=== PATIENT | male | born 1995 | race African-American/Black ===

== ENCOUNTER 2018-07-17 11:05 | Emergency (ER) | payer BC, OTHER ==
[2018-07-17] MEDS ORDERED: ONDANSETRON 4 MG/2 ML VIAL ONE (11:46)
[2018-07-17] MEDS ORDERED: NA CHLORIDE 0.9% 1,000 ML ONE (11:47)
[2018-07-17 11:59] LABS: Absolute Lymphocytes (CBC) 1.3 K/uL (0.7-4.9); Absolute Monocytes 0.4 K/uL (0.1-1.3); Absolute Neutrophil 6.9 K/uL (1.8-8.0); Basophils % 0.3 % (0-1.3); Eosinophils % 0.2 % (0-4.4); Hematocrit 49.5 % (39.6-49.0); Lymphocytes % 15.3 % (15.3-44.8); MPV 10.2 fL (7.6-11.3); Monocytes % 4.8 % (3.3-12.3); RBC Red Blood Cell Count 5.27 M/uL (4.33-5.43)
[2018-07-17 12:19] LABS: Albumin 4.2 g/dL (3.4-5.0); Bilirubin Direct 0.2 mg/dL (0-0.2); Bilirubin Total 0.5 mg/dL (0.2-1.0); Protein, Total 8.4 g/dL (6.4-8.2)
--- NOTE | 2018-07-17 13:13 | EDPHYS ---
Physician Documentation [facility] Name: Juan Carlos Levi Age: 22 yrs Sex: Male : 1995 Arrival Date: 07/17/2018 Time: 11:07 Bed 19 Private MD: ED Physician Asif Don HPI: 07/17 11:55 This 22 yrs old Black Male presents to ER via Ambulatory with complaints of Flu jmm Symptoms. 11:55 The patient presents with abdominal pain. Onset: The symptoms/episode began/occurred jmm gradually. The symptoms do not radiate. Associated signs and symptoms: Pertinent positives: nausea and vomiting. The symptoms are described as achy. This is a 22 year old male with no chronic medical conditions that presents to the ED with generalized abdominal pain beginning this morning around 0400. Patient states having 4 episodes of vomiting. Denies diarrhea. Mother had viral illness 1 week prior. . Historical: - Allergies: 11:18 No Known Allergies; tw2 - Home Meds: 11:18 None [Active]; tw2 - PMHx: 11:18 None; tw2 - PSHx: 11:18 None; tw2 - Immunization history:: Adult Immunizations up to date. - Social history:: Smoking status: Patient/guardian denies using tobacco. - Ebola Screening: : Patient denies travel to an Ebola-affected area in the 21 days before illness onset. ROS: 11:55 Constitutional: Negative for fever, chills, and weight loss, Cardiovascular: Negative jmm for chest pain, palpitations, and edema, Respiratory: Negative for shortness of breath, cough, wheezing, and pleuritic chest pain. 11:55 MS/Extremity: Negative for injury and deformity, Skin: Negative for injury, rash, and discoloration, Neuro: Negative for headache, weakness, numbness, tingling, and seizure. 11:55 Abdomen/GI: Positive for abdominal pain, nausea, vomiting. 11:55 All other systems are negative. Exam: 11:55 Head/Face: atraumatic. Eyes: EOMI, no conjunctival erythema appreciated ENT: Moist jmm Mucus Membranes Neck: Trachea midline, Supple Chest/axilla: Normal chest wall appearance and motion. Cardiovascular: Regular rate and rhythm. No edema appreciated Respiratory: Normal respirations, no respiratory distress appreciated 11:55 Back: Normal ROM Skin: General appearance color normal MS/ Extremity: Moves all extremities, no obvious deformities appreciated, no edema noted to the lower extremities Neuro: Awake and alert, normal gait Psych: Behavior is normal, Mood is normal, Patient is cooperative and pleasant 11:55 Constitutional: The patient appears in no acute distress, alert, awake. 11:55 Abdomen/GI: Inspection: abdomen appears normal, Bowel sounds: normal, Palpation: abdomen is soft and non-tender, in all quadrants. Vital Signs: 11:18 BP 141 / 96; Pulse 70; Resp 17; Temp 97.7(TE); Pulse Ox 99% on R/A; Pain 6/10; tw2 13:32 BP 126 / 92; Pulse 84; Resp 16; Temp 98.4; Pulse Ox 98% on R/A; la1 MDM: 11:27 Patient medically screened. [facility] 13:11 Data reviewed: vital signs, nurses notes. Counseling: I had a detailed discussion with rose the patient and/or guardian regarding: the historical points, exam findings, and any diagnostic results supporting the discharge/admit diagnosis, lab results, the need for outpatient follow up, to return to the emergency department if symptoms worsen or persist or if there are any questions or concerns that arise at home. ED course: No leukocytosis, abdomen soft non tender to palpation. I do not suspect an acute intraabdominal process. Patient given early appendicitis return precautions. Patient tolerates PO in the ED.. 12 11:36 Order name: Basic Metabolic Panel; Complete Time: 12:32 [facility] 07/17 11:36 Order name: CBC with Diff; Complete Time: 12:32 [facility] 07/17 11:36 Order name: Creatinine for Radiology; Complete Time: 12:32 [facility] 07/17 11:36 Order name: Hepatic Function; Complete Time: 12:32 [facility] 07/17 11:36 Order name: Lipase; Complete Time: 12:32 [facility] 07/17 11:36 Order name: IV Saline Lock; Complete Time: 11:47 [facility] 07/17 11:36 Order name: Labs collected and sent; Complete Time: 11:47 [facility] Administered Medications: 11:47 Drug: NS 0.9% 1000 ml Route: IV; Rate: 1 bolus; Site: right antecubital; la1 13:10 Follow up: IV Status: Completed infusion la1 11:47 Drug: Zofran 4 mg Route: IVP; Site: right antecubital; la1 13:10 Follow up: Response: No adverse reaction la1 Disposition: 14:00 Co-signature as Attending Physician, Asif Don MD. rn Disposition: 07/17/18 13:12 Discharged to Home. Impression: Vomiting, unspecified. - Condition is Stable. - Discharge Instructions: Nausea and Vomiting, Adult. - Prescriptions for Zofran ODT 4 mg Oral tablet,disintegrating - place 1 tablet by TRANSLINGUAL route every 4-6 hours; 20 tablet. Bentyl 20 mg Oral Tablet - take 2 tablet by ORAL route every 6 hours As needed; 40 tablet. - Medication Reconciliation Form, Thank You Letter, Antibiotic Education, Prescription Opioid Use form. - Follow up: Private Physician; When: 2 - 3 days; Reason: Recheck today's complaints, Continuance of care, Re-evaluation by your physician. Signatures: Dispatcher [employer] EDMS Jan Jolly PA PA jmm Nieto, Roman, MD MD rn Attema, Lee, RN RN la1 Patricia Gutiérrez RN RN tw2 Corrections: (The following items were deleted from the chart) 13:32 13:12 07/17/2018 13:12 Discharged to Home. Impression: Vomiting, unspecified. Condition la1 is Stable. Forms are Medication Reconciliation Form, Thank You Letter, Antibiotic Education, Prescription Opioid Use. Follow up: Private Physician; When: 2 - 3 days; Reason: Recheck today's complaints, Continuance of care, Re-evaluation by your physician. [facility]
--- NOTE | 2018-07-17 13:13 | ER ---
Nurse's Notes [facility] Name: Juan Carlos Levi Age: 22 yrs Sex: Male : 1995 Arrival Date: 07/17/2018 Time: 11:07 Bed 19 Private MD: Diagnosis: Vomiting, unspecified Presentation: 07/17 11:17 Presenting complaint: Patient states: my stomach has been hurting and i have a tw2 headache, i vomited 3 or 4 times, i feel nauseous started yesterday. Transition of care: patient was not received from another setting of care. Onset of symptoms was July 17, 2018. Risk Assessment: Do you want to hurt yourself or someone else? Patient reports no desire to harm self or others. Initial Sepsis Screen: Does the patient meet any 2 criteria? No. Patient's initial sepsis screen is negative. Does the patient have a suspected source of infection? No. Patient's initial sepsis screen is negative. Care prior to arrival: None. 11:17 Method Of Arrival: Ambulatory tw2 11:17 Acuity: [place] 3 tw2 Triage Assessment: 11:18 General: Appears in no apparent distress. Behavior is calm, cooperative, appropriate tw2 for age. Pain: Complains of pain in abdomen. Historical: - Allergies: 11:18 No Known Allergies; tw2 - Home Meds: 11:18 None [Active]; tw2 - PMHx: 11:18 None; tw2 - PSHx: 11:18 None; tw2 - Immunization history:: Adult Immunizations up to date. - Social history:: Smoking status: Patient/guardian denies using tobacco. - Ebola Screening: : Patient denies travel to an Ebola-affected area in the 21 days before illness onset. Screenin:48 Abuse screen: Denies threats or abuse. Nutritional screening: No deficits noted. la1 Tuberculosis screening: No symptoms or risk factors identified. Fall Risk None identified. Assessment: 11:47 General: Appears in no apparent distress. Behavior is calm, cooperative. Pain: Denies la1 pain. Neuro: Level of Consciousness is awake, alert, obeys commands, Oriented to person, place, time, situation. Cardiovascular: Capillary refill < 3 seconds Patient's skin is warm and dry. Respiratory: Airway is patent Respiratory effort is even, unlabored, Respiratory pattern is regular, symmetrical, Breath sounds are clear bilaterally. GI: Bowel sounds present X 4 quads. Abd is soft and non tender X 4 quads. Reports nausea, vomiting, Patient currently denies bloody stool, constipation. Vital Signs: 11:18 BP 141 / 96; Pulse 70; Resp 17; Temp 97.7(TE); Pulse Ox 99% on R/A; Pain 6/10; tw2 13:32 BP 126 / 92; Pulse 84; Resp 16; Temp 98.4; Pulse Ox 98% on R/A; la1 ED Course: 11:07 Patient arrived in ED. sb2 11:18 Triage completed. tw2 11:18 Arm band placed on. tw2 11:21 Jan Jolly PA is PHCP. dior 11:21 Asif Don MD is Attending Physician. [facility] 11:36 Paul Martin, RN is Primary Nurse. la1 11:47 No provider procedures requiring assistance completed. Inserted saline lock: 20 gauge la1 in right antecubital area, using aseptic technique. Blood collected. 11:48 Call light in reach. la1 13:32 IV discontinued, intact, bleeding controlled, No redness/swelling at site. Pressure la1 dressing applied. Administered Medications: 11:47 Drug: NS 0.9% 1000 ml Route: IV; Rate: 1 bolus; Site: right antecubital; la1 13:10 Follow up: IV Status: Completed infusion la1 11:47 Drug: Zofran 4 mg Route: IVP; Site: right antecubital; la1 13:10 Follow up: Response: No adverse reaction la1 Outcome: 13:12 Discharge ordered by . [facility] 13:32 Discharged to home ambulatory. la1 13:32 Condition: stable 13:32 Discharge instructions given to patient, Instructed on discharge instructions, follow up and referral plans. medication usage, Demonstrated understanding of instructions, follow-up care, medications, Prescriptions given X 2. 13:32 Patient left the ED. la1 Signatures: Jan Jolly PA PA jmm Attema, Lee, RN RN la1 Patricia Gutiérrez RN RN tw2 Donna Lezama sb2
== END 2018-07-17 13:32 | disposition home or self-care (01) ==
LOC: ER 11:05
DX: R11.10 Vomiting, unspecified (principal)
CPT/HCPCS: 36415; 80048; 80076; 83690; 85025; 96361; 96374; 99284; J2405; J7030